=== PATIENT | female | born 1970 | race Caucasian/White ===

== ENCOUNTER 2023-03-13 08:36 | Emergency (ER) | payer OTHER ==
[~2023-03-13] VITALS: Ht 172.7 cm; Wt 99.8 kg
[~2023-03-13 08:36] MED LIST: ALBU90OI INH; ALBU90OI6 INH; AMLO5 PO; ASPI325 PO; AZIT250 PO; Aerochamber1 EACH MC; BENZ100A PO; CLIN150 PO; CLIN300 PO; CYCL10 PO; Cipro500 MG PO; DOXY100 PO; DULO60 PO; FAMO20 PO; FLUC100 PO; FLUSAL2505 IH; HYDACE5 PO; IBUP800 PO; LOVA20 PO; METR500 PO; MONT10T PO; NAPR500 PO; NITR.4SL SL; NO ROUTINE MEDS; Norco 5-325 Ta1 EACH PO; OXYACE5T PO; PRED10 PO; PRED20 PO; PRIMATENE MIST; PROACE100 PO; Prednisone20 MG PO; RXHYDACE PO; RXIBUP800 PO; RXPROACE PO; SUCR1 PO; TOBR.3OPSO OP; TRAM50 PO; TRAZ50 PO; TRIAOI IH; VARE1 PO; Zithromax250 MG PO; [UNRECOGNIZED DRUG - REMARK]; [UNRECOGNIZED DRUG - REMARK]
[2023-03-13 09:02] VITALS: BP 136/87
== END 2023-03-13 10:48 | disposition home or self-care (01) ==
LOC: ER 08:36
DX: M25.562 Pain in left knee (principal); I10 Essential (primary) hypertension; J45.909 Unspecified asthma, uncomplicated; F17.210 Nicotine dependence, cigarettes, uncomplicated; Z88.0 Allergy status to penicillin; Z79.899 Other long term (current) drug therapy; W10.9XXA Fall (on) (from) unspecified stairs and steps, initial encounter
CPT/HCPCS: 73562-LT; A9270; J1885

== ENCOUNTER 2025-09-24 13:29 | Emergency (ER) | payer MEDICAID ==
[~2025-09-24] VITALS: Ht 172.7 cm; Wt 102.5 kg
[2025-09-24 14:49] LABS: Influenza A, PCR NEGATIVE (NEGATIVE); Influenza B, PCR NEGATIVE (NEGATIVE); SARS-Cov-2 (COVID-19) PCR, MMC NEGATIVE (NEGATIVE)
[2025-09-24 15:22] LABS: Alanine Aminotransfer (ALT/SGP 27.0 U/L (12-78); Albumin, Blood 3.6 g/dL (3.4-5.0); Albumin/Globulin Ratio 1.1 (0.8-1.8); Anion Gap 9.0 mmol/L (3-11); Aspartate Aminotrans (AST/SGOT 20.0 U/L (12-37); Bilirubin, Total 0.4 mg/dL (0.1-1.0); Blood Urea Nitrogen 10.0 mg/dL (8-24); CO2, Blood 24.0 mmol/L (21-32); Calcium, Blood 8.6 mg/dL (8.5-10.1); Chloride, Blood 108.0 mmol/L (98-108); Creatinine, Blood 0.74 mg/dL (0.40-1.00); Globulin, Blood 3.4 g/dL (2.2-4.0); Glucose, Blood 90.0 mg/dL (70-99); Potassium, Blood 3.6 mmol/L (3.5-5.5); Sodium, Blood 137.0 mmol/L (136-145); Total Protein, Blood 7.0 g/dL (6.4-8.2)
[2025-09-24 15:58] VITALS: BP 157/77
[2025-09-24] MEDS ORDERED: Prednisone10 MG PO (16:26)
[2025-09-24] MEDS ORDERED: AZIT250 PO (16:26)
[2025-09-24 18:13] LABS: Resp Syncytial Virus, PCR POSITIVE (NEGATIVE)
== END 2025-09-24 16:36 | disposition home or self-care (01) ==
LOC: ER 13:29
PROVIDERS: Emergency Medicine
DX: J44.1 Chronic obstructive pulmonary disease with (acute) exacerbation (principal); B33.8 Other specified viral diseases; E78.00 Pure hypercholesterolemia, unspecified; I10 Essential (primary) hypertension; F17.210 Nicotine dependence, cigarettes, uncomplicated; Z88.0 Allergy status to penicillin; Z79.52 Long term (current) use of systemic steroids; Z79.899 Other long term (current) drug therapy; Z59.89 Other problems related to housing and economic circumstances
CPT/HCPCS: 71046; 80053; 84484; 87081; 87430; 87637; 93005; 93010; 99284-25; A9270; J7512